=== PATIENT | male | born 1955 | race Caucasian/White ===

== ENCOUNTER → 2019-09-11 | Outpatient (CLI) | payer OTHER ==
--- NOTE | 2019-09-14 07:26 | XR ---
EXAMINATION TYPE: XR chest 1V DATE OF EXAM: 09/11/2019 COMPARISON: None INDICATION: Chest pain injury TECHNIQUE: Single frontal view of the chest is obtained. FINDINGS: The heart size is normal. The pulmonary vasculature is prominent. There is diffuse increased lung markings. This may be more focal into the right lower lobe. No pneumo thorax is evident. Displaced rib fractures not identified on these images. Follow-up dedicated rib st udy can be performed for sufficient clinical suspicion. IMPRESSION: 1. Right lower lobe infiltrate with diffuse increased pulmonary vascular markings. Correlate for atyp ical pulmonary edema and volume overload. Mild right lower lobe pneumonia should be considered. 2. No acute posttraumatic changes identified on this study.
== END | disposition home or self-care (01) ==
LOC: RADXRYALE 16:08
PROVIDERS: ATTEND Physician Assistant
DX: R91.8 Other nonspecific abnormal finding of lung field (principal); J18.9 Pneumonia, unspecified organism
CPT/HCPCS: 71045

== ENCOUNTER → 2019-09-14 | Outpatient (CLI) | payer OTHER ==
--- NOTE | 2019-09-14 15:41 | US ---
EXAMINATION TYPE: US venous doppler duplex LE RT DATE OF EXAM: 09/14/2019 3:25 PM COMPARISON: NONE CLINICAL HISTORY: R91.8 Abn CXR, R60.0 Edema. Right LE swelling x 2 months; rib/chest pain since fell on refrigerator 5 days ago SIDE PERFORMED: Right TECHNIQUE: The lower extremity deep venous system is examined utilizing real time linear array sonog dunia with graded compression, doppler sonography and color-flow sonography. VESSELS IMAGED: Common Femoral Vein Deep Femoral Vein Greater Saphenous Vein * Femoral Vein Popliteal Vein Small Saphenous Vein * Proximal Calf Veins (* superficial vessels) Right Leg: Negative for DVT IMPRESSION: 1. Right lower extremity ultrasound negative for deep venous thrombosis.
--- NOTE | 2019-09-14 16:16 | CT ---
EXAMINATION TYPE: CT chest wo con DATE OF EXAM: 09/14/2019 COMPARISON: Plain film x-ray 09/11/2019 HISTORY: Right sided anterior rib pain CT DLP: [address] of the chest was performed with lung and mediastinal window settings submitted. The la ck of contrast limits evaluation of the vascular, mediastinal and parenchymal structures including th e upper abdomen. LUNGS: Multiple bilateral pulmonary nodules are noted to numerous to count. There is consolidative pr ocess in the region of the right middle lobe. This may reflect postobstructive pneumonia. Nonspecific interstitial prominence is noted bilaterally. MEDIASTINUM/EJT: Subcarinal adenopathy measures 4 cm AP dimension. Large right paratracheal adenopat hy measures at least 6.3 cm. Prevascular lymph nodes are noted measuring 2.8 cm in short axis. Suspec t right hilar mass or adenopathy. Lack of contrast limits evaluation. Retrocrural adenopathy noted. Osseous structures: Visualized osseous structures demonstrate blastic metastatic lesions involving vi rtually all of the ribs and thoracic and upper lumbar segments as well as the sternum. UPPER ABDOMEN: Suspect retroperitoneal adenopathy. Contrast-enhanced study would be of value. OTHER: No significant other abnormality. IMPRESSION: 1. Findings are felt to reflect metastatic disease until proven otherwise. Numerous bilateral pulmon gage nodules with extensive mediastinal and right hilar adenopathy. More consolidative process in the region of the right middle lobe. Blastic osseous metastases noted. Retroperitoneal adenopathy also id entified.
== END ==
LOC: RADUSWWP 14:55
PROVIDERS: ATTEND Family Medicine
DX: R91.8 Other nonspecific abnormal finding of lung field (principal); R59.0 Localized enlarged lymph nodes; C79.51 Secondary malignant neoplasm of bone
CPT/HCPCS: 71250

== ENCOUNTER → 2019-09-16 | Outpatient (CLI) | payer OTHER ==
--- NOTE | 2019-09-16 16:06 | CT ---
EXAMINATION TYPE: CT ChestAbdPelvis w con DATE OF EXAM: 09/16/2019 COMPARISON: CT chest 09/14/2019 HISTORY: Right sided chest pain and leg swelling. CT DLP: 1114 mGycm Automated exposure control for dose reduction was used. CONTRAST: CT scan of the chest, abdomen and pelvis is performed with Oral Contrast and with IV Contrast, patien t injected with 100 mL of Isovue 300. FINDINGS: LUNGS: There is extensive interlobular septal thickening and groundglass opacities diffusely bilatera lly. There is near complete atelectasis of the right middle lobe. There is peripheral somewhat linear atelectasis versus consolidation of the left upper lobe anteromedially. Scattered pulmonary nodules are seen, however difficult to differentiate from the extensive interlobular septal disease. There is no pleural effusion or pneumothorax seen. The tracheobronchial tree is patent. MEDIASTINUM: There is extensive confluent mediastinal lymphadenopathy spanning a region approximately 10.2 x 8.3 cm, as well as bilateral hilar adenopathy. OTHER: Gynecomastia. Left supraclavicular adenopathy incompletely visualized. No axillary lymphadeno carolin. LIVER/GB: No significant abnormality is appreciated. PANCREAS: No significant abnormality is seen. SPLEEN: No significant abnormality is seen. ADRENALS: No significant abnormality is seen. KIDNEYS: There is mild right hydronephrosis and hydroureter., With no excreted contrast of the right renal collecting system seen on delayed imaging. Left kidney normal. BOWEL: No evidence of bowel obstruction. Moderate colonic fecal debris. PELVIS: There is asymmetric prostate gland enhancement of the right prostate spanning 3.6 x 4.2 cm (3 :112, with asymmetric bulging into the base of the right urinary bladder. The urinary bladder is unde rdistended. Left-sided hydrocele. LYMPH NODES: There is extensive bulky confluent retroperitoneal lymphadenopathy, measuring up to 9.8 x 7.5 cm at the level of the kidneys. Pelvic adenopathy is seen, with 1.2 cm lymph node anterior to t he right prostate gland. Extensive iliac lymphadenopathy, right greater than left. Many of the enlarg ed right common iliac and external iliac nodes demonstrate hypodense necrotic appearing center. Right inguinal lymph nodes measure up to 1.2 cm. PERITONEAL: No pneumoperitoneum or ascites seen. VASCULATURE: Calcified atherosclerotic disease of the abdominal aorta. Infrarenal abdominal aortic ec stefania measures up to 2.0 cm. OSSEOUS STRUCTURES: Diffuse osteoblastic lesions of the chest, abdomen, and pelvis seen. IMPRESSION: 1. Enhancing 3.6 x 4.2 cm right prostate mass with asymmetric bulging into the base urinary bladder m ost likely represents prostate adenocarcinoma. 2. Extensive findings most likely represent metastatic prostate cancer, including extensive bulky lym phadenopathy of the chest, abdomen, and pelvis, and diffuse osteoblastic osseous lesions. Metastatic disease to the lungs is likely, including pulmonary nodules, marked interlobular septal thickening, a nd groundglass opacities. 3. Mild right hydronephrosis and hydroureter is likely obstructive due to pelvic adenopathy. Dr. Laila Sellers conveyed finding to Dr. Slime Hale via perfect serve paging at on 09/16/2019 at 4:00 PM.
== END | disposition home or self-care (01) ==
LOC: RADCTMAIN 12:30
PROVIDERS: ATTEND Internal Medicine Critical Care Medicine
DX: N42.89 Other specified disorders of prostate (principal); N13.30 Unspecified hydronephrosis; N13.4 Hydroureter; R91.8 Other nonspecific abnormal finding of lung field
CPT/HCPCS: 71260; 74177; Q9967

== ENCOUNTER 2019-09-21 12:00 | Day surgery (SDC) | payer OTHER ==
[2019-09-17 16:22] VITALS: BMI 24.5
[~2019-09-21 12:00] MED LIST: ALBUTEROL NEB (CONC) 2.5 MG/0.5 ML INHALATION ONE; LACTATED RINGERS 1,000 ML IV SCH; LIDOCAINE 1% (10MG/ML) FOR IV START INTRADERMA PRN; LIDOCAINE 2% (PF) 20 MG/ML 5 ML VIAL INHALATION ONE; LIDOCAINE VISCOUS 300 MG/15 ML CUP MUCOUS MEM ONE; SODIUM CHLORIDE 0.9% 1,000 ML IV SCH
[2019-09-21] MEDS ORDERED: GLYCOPYRROLATE 0.2 MG/ML 2 ML VIAL ONE (13:36)
[2019-09-21] MEDS ORDERED: PROPOFOL 10 MG/ML 20 ML VIAL IV ONE (13:36)
[2019-09-21] MEDS ORDERED: KETAMINE 10 MG/ML 20 ML VIAL ONE (13:36)
[2019-09-21] MEDS ORDERED: MIDAZOLAM 2 MG/2 ML VIAL ONE (13:36)
[2019-09-21] MEDS ORDERED: LIDOCAINE 2% INJ 20 MG/ML INTRATRACH ONE ×2 (13:44→13:52)
--- NOTE | 2019-09-21 14:29 | P.PCN ---
Date of Procedure: 09/21/19 Preoperative Diagnosis: Diffuse metastases, consider prostatic cancer Postoperative Diagnosis: Large bulky mediastinal lymph node, extensive compression of the various segments of the right middle lobe and the right lower lobe, transbronchial needle aspirate of the right paratracheal lymph node/mass Procedure(s) Performed: Flexible bronchoscopy Transbronchial needle aspirate of the right paratracheal lymph nodes Anesthesia: MAC Surgeon: Jack Hale Estimated Blood Loss (ml): 5 Pathology: other Condition: stable Disposition: same day Operative Findings: This procedure was done under conscious sedation. This was done at [facility] endoscopy suite. A timeout was obtained. Following that, the patient was sedated with a combination of Propofol and Ketamine under the care of anesthesia. The flexible bronchoscope was inserted through right nostril was advanced into the upper airway. The posterior oropharynx, larynx, epiglottis and vocal cords were all within normal limits. A total of 2 mL of 1% lidocaine was applied to the vocal cords and following that the bronchoscope was passed into the upper trachea. Examination of the trachea bronchial tree was done. The trachea was within normal limits. The bilateral mainstem bronchi were normal. There was some looseness for secretions were suctioned out. The right middle lobe bronchus and the right lower lobe bronchus was extrinsically compressed. The right upper lobe bronchus was extensively the compressed. Various symptoms of the right lower lobe were quite atelectatic. This was essentially due to mass effect and there was no endobronchial tumors or lesions identified. Examination of left side including left upper lobe bronchus and left lower lobe bronchus along with the radius segments and subsegments. All of them were within normal limits. At this point, using a 19-gauge histology and 21 units cytology needle, transbronchial needle aspirate of the right side secondary lymph node was done. Adequacy of the samples was confirmed by pathology at the bedside. A total of 4-5 passes were obtained. There was some bleeding encountered at the puncture site it was monitored and the bleeding stopped spontaneously. Total amount of bleeding was less than 5 mL and the patient tolerated the procedure well without any complications. At the completion of the procedure, favoring it was suctioning was done and the bronchoscope was removed and the patient was transferred recovery in stable condition. We'll order a PSA. No need for a chest x-ray. The patient will be contacted back with the results in few days' time.
[2019-09-21 14:53] VITALS: TEMP 97.9
[2019-09-21 15:48] VITALS: PULSE 95; RESP 16
[2019-09-21 16:14] VITALS: BP 126/75
== END 2019-09-21 16:28 | disposition home or self-care (01) ==
LOC: ORWHC2ENDO 12:00
PROVIDERS: ATTEND Internal Medicine Critical Care Medicine
DX: C77.1 Secondary and unspecified malignant neoplasm of intrathoracic lymph nodes (principal); C61 Malignant neoplasm of prostate; J98.4 Other disorders of lung; J98.11 Atelectasis; J44.9 Chronic obstructive pulmonary disease, unspecified; R22.41 Localized swelling, mass and lump, right lower limb; S20.219D Contusion of unspecified front wall of thorax, subsequent encounter; K08.89 Other specified disorders of teeth and supporting structures; F17.210 Nicotine dependence, cigarettes, uncomplicated; Z79.899 Other long term (current) drug therapy; Z79.1 Long term (current) use of non-steroidal anti-inflammatories (NSAID); Z79.891 Long term (current) use of opiate analgesic; W11.XXXD Fall on and from ladder, subsequent encounter
CPT/HCPCS: 88305; 88173; 88342; 88341; 31629; G0103; J2001; J2250; J2704

== ENCOUNTER → 2019-09-30 | Outpatient (CLI) | payer OTHER ==
--- NOTE | 2019-09-30 15:42 | NM ---
EXAMINATION TYPE: NM bone scan whole body DATE OF EXAM: 09/30/2019 COMPARISON: Correlation CT 09/16/2019 HISTORY: 63-year-old male near diagnosis of prostate cancer. Chest wall pain after fall 3 weeks ago. TECHNIQUE: Delayed whole-body scanning was performed following the injection of 23.7 mCi Tc 99m MDP i n anterior and posterior projections. Images acquired 3 hours post injection. FINDINGS: Dotted abnormal increased tracer activity is present throughout the axial and appendicular skeleton i ncluding the calvarium, bilateral ribs, thoracic spine, right sacrum, proximal humeri, right glenoid, superior right acetabulum, and proximal to mid femurs. In addition, there are 3 consecutive areas of focal intense activity along right anterolateral mid to lower ribs. IMPRESSION: 1. Scintigraphic findings compatible with diffuse osseous metastatic disease. 2. 3 consecutive levels of focal intense activity involving right anterolateral mid to lower ribs, dotson spected posttraumatic activity. Correlate for focal pain or history of injury to this location.
== END | disposition home or self-care (01) ==
LOC: RADNMMAIN 10:27
PROVIDERS: ATTEND Internal Medicine Hematology & Oncology
DX: C79.51 Secondary malignant neoplasm of bone (principal); C61 Malignant neoplasm of prostate
CPT/HCPCS: 78306; A9503

== ENCOUNTER → 2019-12-14 | Outpatient (CLI) | payer OTHER ==
[2019-12-14 14:03] LABS: African American GFR (CKD) >90 (>60 ml/min/1.73 sqM); Blood Urea Nitrogen 15 mg/dL (9-20); Non-African American GFR(CKD) >90 (>60 ml/min/1.73 sqM)
--- NOTE | 2019-12-14 16:25 | US ---
EXAMINATION TYPE: US venous doppler duplex LE DATE OF EXAM: 12/14/2019 12:58 PM COMPARISON: US 2019 CLINICAL HISTORY: R22.42 Swelling of L, R22.41 Swelling of R lower. Bilateral leg pain and swelling SIDE PERFORMED: Bilateral TECHNIQUE: The lower extremity deep venous system is examined utilizing real time linear array sonog dunia with graded compression, doppler sonography and color-flow sonography. VESSELS IMAGED: External Iliac Vein (EIV) Common Femoral Vein Deep Femoral Vein Greater Saphenous Vein * Femoral Vein Popliteal Vein Small Saphenous Vein * Proximal Calf Veins (* superficial vessels) Right Leg: Appears negative for DVT Left Leg: Appears negative for DVT Grayscale, color doppler, spectral doppler imaging performed of the deep veins of the bilateral lower extremities. There is normal flow, compressibility, vascular waveforms. IMPRESSION: No ultrasound evidence for acute DVT in either lower extremity.
== END | disposition home or self-care (01) ==
LOC: RADUSWWP 12:18
PROVIDERS: ATTEND Internal Medicine Hematology & Oncology
DX: R22.43 Localized swelling, mass and lump, lower limb, bilateral (principal); M79.661 Pain in right lower leg; M79.662 Pain in left lower leg
CPT/HCPCS: 36415; 82565; 84520; 93970

== ENCOUNTER → 2020-01-05 | Outpatient (CLI) | payer OTHER ==
[2020-01-05 13:45] LABS: African American GFR (CKD) >90 (>60 ml/min/1.73 sqM); Blood Urea Nitrogen 18 mg/dL (9-20); Non-African American GFR(CKD) >90 (>60 ml/min/1.73 sqM)
--- NOTE | 2020-01-05 16:34 | CT ---
EXAMINATION TYPE: CT ChestAbdPelvis w con DATE OF EXAM: 01/05/2020 COMPARISON: Prior CT 09/16/2019 HISTORY: Prostate cancer CT DLP: 1492 mGycm Automated exposure control for dose reduction was used. CONTRAST: CT scan of the chest, abdomen and pelvis is performed with Oral Contrast and with IV Contrast, patien t injected with 100 ml mL of Isovue 300. FINDINGS: There are changes of gynecomastia. LUNGS: The lungs are grossly clear, there is no concerning parenchymal mass or nodule identified. Em physematous changes are present within the lungs There is no pleural effusion or pneumothorax seen. The tracheobronchial tree is patent. MEDIASTINUM: The lymphadenopathy within the mediastinum has decreased in size. Confluent soft tissue no longer causes extensive widening of the mediastinum as on prior exam, right hilar adenopathy has a lso decreased as has the left hilar adenopathy. No pericardial effusion is seen. AORTA: No significant abnormality is seen. OTHER: No additional significant abnormality is seen. LIVER/GB: No significant abnormality is appreciated. PANCREAS: No significant abnormality is seen. SPLEEN: No significant abnormality is seen. ADRENALS: No significant abnormality is seen. KIDNEYS: No significant abnormality is seen. REPRODUCTIVE ORGANS: The abnormal density within the prostate is also improved, prostate gland is red uced in size measuring 3.6 cm in transverse dimension. BOWEL: No significant abnormality is seen. FREE AIR: No Free Air visible. ASCITES: None seen. RETROPERITONEAL ADENOPATHY: Abnormal soft tissue extends along the aorta and inferior vena cava is i mproved markedly in the interval, extension along the right iliac region and pelvic sidewall has impr dawit bilaterally. LYMPH NODES: No greater than 1 cm abdominal or pelvic lymph nodes are appreciated. URINARY BLADDER: No significant abnormality is seen. PELVIC ADENOPATHY: None visualized. OSSEOUS STRUCTURES: Too numerous to count sclerotic foci are scattered within the skeleton as on elda or exam. IMPRESSION: There is marked treatment response, patient's adenopathy is extensively improved.
== END | disposition home or self-care (01) ==
LOC: RADCTMAIN 12:58
PROVIDERS: ATTEND Internal Medicine Hematology & Oncology
DX: Z03.89 Encounter for observation for other suspected diseases and conditions ruled out (principal); C61 Malignant neoplasm of prostate
CPT/HCPCS: 82565; 84520; 71260; 74177; 36415; Q9967

== ENCOUNTER → 2021-10-27 | Outpatient (CLI) | payer MEDICARE ==
[2021-10-27 09:41] LABS: African American GFR (CKD) >90 (>60 ml/min/1.73 sqM); Blood Urea Nitrogen 13 mg/dL (9-20); Non-African American GFR(CKD) 88 (>60 ml/min/1.73 sqM)
--- NOTE | 2021-11-03 08:35 | CT ---
EXAMINATION TYPE: CT ChestAbdPelvis w con DATE OF EXAM: 10/27/2021 COMPARISON: 01/05/2020 HISTORY: Prostate cancer CT DLP: 620.3 mGycm CONTRAST: CT scan of the chest, abdomen and pelvis is performed with Oral Contrast and with IV Contrast, patien t injected with 70 mL of Isovue 300. CT Chest: LUNGS: The lungs are clear and free of infiltrate or atelectasis. No pulmonary nodule or mass is det ected. No pleural effusion or CT evidence of interstitial lung disease. MEDIASTINUM: Thoracic aorta is of normal caliber. The heart is not enlarged. Resolution of previous ly noted hilar or mediastinal adenopathy. No lymph nodes greater than 1 cm appreciated. HILAR STRUCTURES: No evidence for mass. No hilar adenopathy is appreciated. OTHER: No significant abnormality. CONTRAST CT ABDOMEN AND PELVIS FINDINGS: LIVER/GB: No calcified gallstones. No space occupying hepatic lesion. Biliary tree is of normal ca liber. PANCREAS: No inflammation. No distinct mass. SPLEEN: No splenic enlargement. No lesion seen. ADRENALS: No nodule. No thickening. KIDNEYS/BLADDER: No hydronephrosis. No nephrolithiasis. No disctinct renal mass. BOWEL: Normal appendix. Normal bowel caliber. No inflammation. GENITAL ORGANS: No gross abnormality. LYMPH NODES: Resolution of retroperitoneal and iliac chain adenopathy seen previously. No adenopathy greater than 1 cm appreciated at this time. AORTA: No significant abnormality. OSSEOUS STRUCTURES: Persistent blastic metastatic disease throughout the visualized axial skeleton. OTHER: No significant additional abnormality is seen. IMPRESSION: 1. Resolution of previously noted hilar, mediastinal, retroperitoneal and iliac chain adenopathy. 2. Persistent blastic metastatic disease.
== END | disposition home or self-care (01) ==
LOC: RADCTMAIN 08:18
PROVIDERS: ATTEND Internal Medicine Hematology & Oncology
DX: C61 Malignant neoplasm of prostate (principal)
CPT/HCPCS: 82565; 84520; 71260; 74177; 36415; Q9967 ×2

== ENCOUNTER → 2022-08-02 | Outpatient (CLI) | payer MEDICARE ==
[2022-08-02 10:19] LABS: African American GFR (CKD) >90 (>60 ml/min/1.73 sqM); Blood Urea Nitrogen 16 mg/dL (9-20); Non-African American GFR(CKD) >90 (>60 ml/min/1.73 sqM)
--- NOTE | 2022-08-02 12:11 | CT ---
EXAMINATION TYPE: CT ChestAbdPelvis w con CT DLP: 983.2 mGycm, Automated exposure control for dose reduction was used. DATE OF EXAM: 08/02/2022 12:01 PM COMPARISON: CT chest abdomen pelvis with most recent 10/27/2021 CLINICAL INDICATION:Male, 66 years old with history of C61 prostate ca; PHH, obs for mets, hx of pros borja ca. Technique: Multiple axial images of the chest, abdomen, and pelvis were obtained following the intrav enous administration of 100 mL Isovue-300. Oral contrast was a driver guard. Two-dimensional coronal and sagittal reconstructions were obtained. Findings: CHEST: LUNGS/ PLEURA: No pleural effusion, pneumothorax, focal consolidation. No suspicious pulmonary nodule s or masses. Mild centrilobular emphysematous changes. AIRWAY: Patent and unremarkable.. HEART: Size within normal limits. No pericardial effusion. Mild coronary arterial calcifications. MEDIASTINUM: No evidence of adenopathy. VASCULATURE: No aortic aneurysm. MUSCULOSKELETAL: No acute osseous abnormalities. Persistent blastic metastatic disease throughout the visualized axial skeleton. SOFT TISSUES/LYMPH NODES: Unremarkable. LOWER NECK: No significant findings. ABDOMEN: ABDOMEN LIVER: Unremarkable GALLBLADDER AND BILE DUCTS: Unremarkable. PANCREAS: Unremarkable. SPLEEN: Unremarkable. ADRENAL GLANDS: Unremarkable. KIDNEYS AND URETERS: No evidence of hydronephrosis or renal calculus. The kidneys enhance symmetrical ly without suspicious focal lesion. PELVIS BLADDER: Unremarkable REPRODUCTIVE: Similar enhancement within the prostate gland. Prostate gland measures 4.0 cm in diamet er. ABDOMEN & PELVIS STOMACH AND BOWEL: Stomach and duodenum are unremarkable. No focal bowel wall thickening or surroundi ng inflammatory changes. Enteric contrast reaches the transverse colon. No evidence of bowel obstruct ion. PERITONEUM: No evidence of pneumoperitoneum or free fluid. VASCULATURE: Mild to moderate atherosclerotic calcifications are present throughout the abdominal aor ta and its branches. No abdominal aortic aneurysm. MUSCULOSKELETAL: No acute osseous abnormalities. Persistent blastic metastatic disease throughout the visualized axial skeleton. LYMPH NODES: No gross evidence for lymphadenopathy. SOFT TISSUE/ABDOMINAL WALL: Unremarkable IMPRESSION: 1. No new pathologic adenopathy within the chest, abdomen or pelvis. 2. Persistent blastic osseous metastatic disease.
--- NOTE | 2022-08-02 14:58 | NM ---
EXAMINATION TYPE: NM bone scan whole body DATE OF EXAM: 08/02/2022 COMPARISON: 10/09/2021 CLINICAL INDICATION: Male, 66 years old with history of C61 prostate ca; Delayed whole-body scanning was performed following the injection of 21.9 mCi Tc 99m MDP. Images acq uired 3.5 hours post injection. FINDINGS: There is new increased radiotracer accumulation noted to involve the right hemimandible. Metastatic d isease to this region is difficult to exclude. Other possibilities include Paget's disease or infecti on. There is mild degenerative uptake about the shoulders, sternoclavicular joints bilateral hands as well as the ankles and feet. Increased uptake right ribs 5 through 7 compatible with remote fracture s. Degenerative uptake about the thoracic spine. IMPRESSION: 1. There is new increased radiotracer accumulation noted to involve the right hemimandible. Metastati c disease to this region is difficult to exclude. Other possibilities include Paget's disease or infe ction. Graphic correlation recommended.
== END | disposition home or self-care (01) ==
LOC: RADNMMAIN 09:36
PROVIDERS: ATTEND Internal Medicine Hematology & Oncology
DX: C61 Malignant neoplasm of prostate (principal); C79.51 Secondary malignant neoplasm of bone
CPT/HCPCS: 82565; 84520; 71260; 74177; 36415; 78306; A9503; Q9967

== ENCOUNTER → 2023-09-12 | Outpatient (CLI) | payer MEDICARE ==
[2023-09-12 10:36] LABS: African American GFR (CKD) >90 (>60 ml/min/1.73 sqM); Blood Urea Nitrogen 14 mg/dL (9-20); Non-African American GFR(CKD) >90 (>60 ml/min/1.73 sqM)
--- NOTE | 2023-09-12 12:03 | CT ---
EXAMINATION TYPE: CT ChestAbdPelvis w con DATE OF EXAM: 09/12/2023 COMPARISON: 08/02/2022 HISTORY: PROSTATE CA CT DLP: 1559 mGycm Automated exposure control for dose reduction was used. CONTRAST: CT scan of the chest, abdomen and pelvis is performed with Oral Contrast and with IV Contrast, patien t injected with 100 mL of Isovue 300. FINDINGS: CT chest: There is no suspicious lung mass or nodule. There is no abnormal airspace/consolidative density or abnormal interstitial density. There is no pleural effusion, pleural thickening or pneumothorax. The great vessels and chest are normal there is no mediastinal, hilar or axillary adenopathy. There are diffuse innumerable small sclerotic metastases scattered throughout the ribs, cervical spin e, thoracic spine in proximal humeri. CT abdomen and pelvis: Gallbladder is normal without distention, pericholecystic fluid, wall thickening or gallstone. There is no biliary ductal dilatation. There is no focal mass or organomegaly involving the liver, pancreas, spleen or adrenal glands.. There is no solid renal mass or hydronephrosis. There is no retroperitoneal adenopathy or hemorrhage in the caliber of the abdominal aorta is normal. The bowel loops are normal in caliber and there is no dilatation or obstruction. No inflammatory guy ges identified in the bowel wall and mesentery. There is no free intracranial air or fluid. There is no pelvic mass or adenopathy. There is no free fluid within the pelvis. There are multiple innumerable sclerotic metastasis involving the lumbar spine, pelvis and proximal f emurs. IMPRESSION: 1. Diffuse innumerable sclerotic metastases scattered throughout the axial skeleton and proximal appe ndicular skeleton. There are no pathological fractures. 2. No metastasis involving the soft tissues of the chest, abdomen and pelvis. 3. No significant interval change.
--- NOTE | 2023-09-12 14:35 | NM ---
EXAMINATION TYPE: NM bone scan whole body DATE OF EXAM: 09/12/2023 COMPARISON: 08/02/2022 CLINICAL INDICATION: Male, 67 years old with history of C61 Prostate cancer; Delayed whole-body scanning was performed following the injection of 19.7 mCi Tc 99m MDP. Images acq uired 3 hours post injection. FINDINGS: New areas of abnormal uptake: None. Progressive areas of abnormal uptake: There is progressive uptake about the mandible. Progressive upt rosalva is seen about the mid left pedicle. Stable increased uptake: There is stable increased uptake involving right ribs 5 6 and 7. Stable upta ke is seen about the mid thoracic spine and lower lumbar spine and left SI joint. Stable degenerative uptake about the shoulders. Improved areas of increased uptake: None IMPRESSION: As above
== END | disposition home or self-care (01) ==
LOC: RADNMMAIN 09:32
PROVIDERS: ATTEND Internal Medicine Hematology & Oncology
DX: Z03.89 Encounter for observation for other suspected diseases and conditions ruled out (principal); C61 Malignant neoplasm of prostate; C79.51 Secondary malignant neoplasm of bone; Z85.46 Personal history of malignant neoplasm of prostate
CPT/HCPCS: 82565; 84520; 71260; 74177; 36415; 78306; A9503; Q9967